=== PATIENT | female | born 1975 | race Caucasian/White ===

== ENCOUNTER 2016-10-08 01:07 | Emergency (ER) ==
[2016-10-08] MEDS ORDERED: NS 1,000 ML ONE (01:17)
[2016-10-08] MEDS ORDERED: BENADRYL ONE (01:17)
[2016-10-08] MEDS ORDERED: EPINEPHRINE ONE (01:20)
[2016-10-08] MEDS ORDERED: NS 1,000 ML IV ONE (01:23)
[2016-10-08] MEDS ORDERED: EPINEPHRINE SUBQ ONE (01:23)
[2016-10-08] MEDS ORDERED: BENADRYL IV ONE (01:24)
[2016-10-08] MEDS ORDERED: PEPCID ONE (01:35)
[2016-10-08] MEDS ORDERED: SODIUM CHLORIDE 0.9% 10 ML ONE (01:36)
--- NOTE | 2016-10-08 01:41 | PROVIDER DOCUMENTATION ---
HPI-General Adult - General Source: patient - History of Present Illness -Gen Adult Nature of Presenting Problems: Pt is a 41 yof who presents to ER with CC of anaphylaxis shock. Pt reports that this happened to her in August and reports the cause of her allergic reaction is unknown. Pt reports that she was sitting in bed reading when she began to develop hives on her scalp that progressed down her body. 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 Pt also reports that she felt lightheaded, and had a syncopal episode in triage. On exam, pt's B /P was originally 83/37. After 1/2 L of fluids, pt's B/P was 116/65. On exam, pt did have hives on the back of her neck, bilateral upper and lower extremities as well as her back/abdomen. Location of Pain/Injury: reports: generalized Pain Radiation: reports: no radiation Quality of Pain: reports: other (itching) Severity: reports: moderate Onset/Duration: reports: 1-3 hours ago Timing: reports: still present, improving Context/Activities at Onset: reports: rest Associated Symptoms: reports: anxiety, fatigue, rash, syncope, weakness. denies : arm pain, back/neck pain, chest pain, constipation, cough, dizziness, EENT symptoms, fever/chills, genitourinary problems, headaches, heartburn, joint pain , loss of appetite, muscle aches, nausea, seizure, shortness of breath, sensory/ motor loss, vomiting, trouble walking <Allen Moreno - Last Filed: 10/08/16 02:28> <Nuno Rivas - Last Filed: 10/08/16 02:33> - General Chief Complaint: Allergic Reaction Stated Complaint: EPILETIC SHOCK Time Seen by Provider: 10/08/16 01:20 Allergies/Adverse Reactions: Patient Allergies Allergy/AdvReac Type Severity Reaction Status Date / Time No Known Allergies Allergy Verified 10/08/16 01:30 Home Medications: Home Medication List Medication Instructions Recorded Confirmed Last Taken Type Duloxetine [Cymbalta] 60 mg PO DAILY 04/23/15 08/28/16 10/07/16 History Epinephrine [Epipen 2-Dariusz] 0.3 mg IM ONCE #1 [email or web address] 10/08/16 Unknown Rx Review of Systems - Adult - REVIEW OF SYSTEMS - ADULT Constitutional: denies: chills, fever, fatique, night sweats, weight gain, weight loss Eyes: denies: discharge, dry eyes, decreased vision, blurred vision, double vision, eye pain, redness Ears, Nose, Mouth & Throat: reports: no symptoms reported Cardiovascular: reports: syncope. denies: chest pain, edema, heart murmur, irregular heart rate, orthopnea, palpitations, poor circulation, PND Respiratory: reports: shortness of breath, wheezing. denies: chronic cough, cough, dyspnea on exertion, excessive sputum production, hemoptysis, pleurisy Gastrointestinal: denies: abdominal pain, hematemesis, constipation, diarrhea, difficulty swallowing, frequent heartburn, nausea, poor appetite, rectal bleeding, vomiting Genitourinary: reports: no symptoms reported Musculoskeletal: reports: no symptoms reported Integumentary: reports: hives, itching, rash. denies: hair loss, mole changes, nail changes, skin sores/ulcer, skin thickening Neurological: reports: syncope. denies: ataxia, dizziness/vertigo, headache/ migraines, loss of balance, numbness, paresthesia, seizure, slurred speech, tremors Psychiatric: reports: no symptoms reported Endocrine: reports: no symptoms reported Hematologic/Lymphatic: reports: no symptoms reported Allergic/Immunologic: reports: allergic reactions, hives. denies: allergic rhinitis, asthma, eczema, food allergy, frequent infections, hay fever, positive PPD, urticaria All Other Systems: Reviewed and Negative <Allen Moreno - Last Filed: 10/08/16 02:28> Past History - Adult - PAST MEDICAL HISTORY-ADULT Review of Records: reports: Nursing Assessment Review, Medications Reviewed Cardiovascular: reports: hyperlipidemia - PRIOR SURGERIES/PROCEDURES Surgical/Procedure History: reports: - IMMUNIZATION STATUS Childhood Immunizations: See Nurse Assessment Flu Vaccine: See Nurse Assessment <Allen Moreno - Last Filed: 10/08/16 02:28> Physical Exam-General - PHYSICAL EXAM-ADULT Initial Vital Signs Reviewed: Yes - CONSTITUTIONAL General Appearance: appears well, alert, severe distress, anxious. negative: no apparent distress, mild distress, moderate distress, cachetic, obese, thin, lethargic, slow to respond, obtunded, combative - HEAD, EARS, NOSE, MOUTH & THROAT HENMT: normocephalic/atraumatic, moist mucous membranes, normal ENT inspection. negative: pharyngeal erythema, tonsillar exudate, TM abnormal, TM obscurred by cerumen, frontal tenderness, maxillary tenderness - NECK Neck: non-tender, full range of motion, supple. negative: limited range of motion, lymphadenopathy - RESPIRATORY Respiratory: chest non-tender, lungs clear, normal breath sounds. negative: respiratory distress, decreased breath sounds, accessory muscle use, wheezing - CARDIOVASCULAR Cardiovascular: normal peripheral pulses, other (hypotensive (83/37)). negative : regular rate, rhythm, bradycardia, tachycardia, irregularly irregular - GASTROINTESTINAL (ABDOMEN) Abdominal Exam: normal bowel sounds, non tender, soft. negative: abnormal bowel sounds, distended, tenderness, mass - LYMPHATIC Lymphatic: no adenopathy. negative: axilla node tender, cervical node tenderness, inguinal node tender - MUSCULOSKELETAL Extremity: normal range of motion, non-tender, normal gait. negative: deformity , erythema, pedal edema, swelling, tenderness - SKIN Integumentary: erythema, rash. negative: laceration(s), swelling, tenderness, warm - NEUROLOGIC Neurologic: grossly normal, no motor/sensory deficits. negative: facial droop, focal weakness, motor weakness, sensory deficit <Allen Moreno - Last Filed: 10/08/16 02:28> Progress - PLAN OF CARE/RESULTS Progress/Plan/Lab Results: Vital Signs - 24 hr 10/08/16 10/08/16 10/08/16 01:16 01:21 01:25 Temperature 97.3 F L Pulse Rate 70 75 77 Respiratory 18 18 16 Rate Blood Pressure 83/37 102/71 199/82 O2 Sat by Pulse 96 97 96 Oximetry 10/08/16 10/08/16 01:46 02:25 Temperature Pulse Rate 82 77 Respiratory 16 18 Rate Blood Pressure 132/73 137/76 O2 Sat by Pulse 99 97 Oximetry Orders Category Date Time Status 0.9% Sodium Chloride Inj [Ns] 1,000 ml Med 10/08/16 01:17 Discontinued .ROUTE As Directed 0.9% Sodium Chloride Inj [Ns] 1,000 ml Med 10/08/16 01:23 Discontinued IV 999 mls/hr Diphenhydramine [Benadryl] Med 10/08/16 01:17 Discontinued 50 mg .ROUTE .STK-MED ONE Diphenhydramine [Benadryl] Med 10/08/16 01:24 Discontinued 50 mg IV NOW ONE Epinephrine Med 10/08/16 01:20 Discontinued 1 mg .ROUTE .STK-MED ONE Epinephrine Med 10/08/16 01:23 Discontinued 1 mg SUBQ NOW ONE Famotidine [Pepcid] Med 10/08/16 01:35 Discontinued 20 mg .ROUTE .STK-MED ONE Famotidine [Pepcid] Med 10/08/16 01:47 Discontinued 20 mg IV NOW ONE Sodium Chloride 0.9% Med 10/08/16 01:47 Discontinued 5 - 10 ml INJ NOW ONE Sodium Chloride 0.9% 10 ml Med 10/08/16 01:36 Discontinued .ROUTE As Directed <Allen Moreno - Last Filed: 10/08/16 02:28> Departure - Departure Time of Disposition Order: 02:28 Certified Medical Emergency: Emergent <Allen Moreno - Last Filed: 10/08/16 02:28> - Departure Time of Disposition Order: 02:29 Certified Medical Emergency: Emergent <Nuno Rivas - Last Filed: 10/08/16 02:33> - Departure DIAGNOSIS: Acute urticaria Hypotension (arterial) Qualifiers: Hypotension type: other hypotension type Qualified Code(s): I95.89 - Other hypotension Disposition: HOME 01 Condition: Good Prescriptions: Epinephrine [Epipen 2-Dariusz] 0.3 mg IM ONCE #1 pen.injctr Referrals: None,PCP [Primary Care Provider] - Attestation - Scribe Verification/Attestation Scribe:: Allen Moreno Acting as Scribe for:: Nuno Rivas Scribelio documention review:: This chart was documented by a scribe and accurately reflects the service the provider performed and the decisions made by the provider. <Allen Moreno - Last Filed: 10/08/16 02:28> Physician Attestation
[2016-10-08] MEDS ORDERED: PEPCID IV ONE (01:47)
[2016-10-08] MEDS ORDERED: SODIUM CHLORIDE 0.9% INJ ONE (01:47)
[2016-10-08 02:57] VITALS: BP 152/72
== END 2016-10-08 02:58 | disposition home or self-care (01) ==
LOC: ED 01:07
DX: L50.9 Urticaria, unspecified (principal); I95.89 Other hypotension; R42 Dizziness and giddiness; R55 Syncope and collapse; L29.9 Pruritus, unspecified; R53.83 Other fatigue; R21 Rash and other nonspecific skin eruption; R53.1 Weakness; R06.02 Shortness of breath; R06.2 Wheezing; E78.5 Hyperlipidemia, unspecified; Z79.899 Other long term (current) drug therapy
CPT/HCPCS: J0171; J1200; J7030; S0028